=== PATIENT | female | born 1970 | race Caucasian/White ===

== ENCOUNTER 2025-08-21 07:50 | Emergency (ER) | payer BC ==
[~2025-08-21] VITALS: Ht 168.9 cm; Wt 68.0 kg
[2025-08-21 08:09] VITALS: BP 117/83; O2SAT 96
[2025-08-21] MEDS ORDERED: TIROSINT25 MCG (08:13)
[2025-08-21] MEDS ORDERED: CYTOMEL5 MCG (08:15)
[2025-08-21] MEDS ORDERED: ONDANSETRON HCL 2 MG/ML VIAL IV ONE (09:00)
[2025-08-21] MEDS ORDERED: KETOROLAC TROMETHAMINE 30 MG VIAL IU ONE (09:00)
[2025-08-21] MEDS ORDERED: 0.9 % SODIUM CHLORIDE 1,000 ML IV ONE (09:00)
[2025-08-21] MEDS ORDERED: KETOROLAC TROMETHAMINE 30 MG VIAL ONE (09:27)
[2025-08-21] MEDS ORDERED: ONDANSETRON HCL 2 MG/ML VIAL ONE (09:27)
[2025-08-21 10:15] LABS: BASO % 0.2 % (0.1-1.2); EOS # 0.10 (0.04-0.54); EOS % 0.9 % (0.7-7.0); LYMPH # 1.16 (1.18-3.74); LYMPH % 10.8 % (19.3-53.1); MEAN PLATELET VOLUME 11.70 fl (9.4-12.4); MONO # 0.51 (0.24-0.82); MONO % 4.8 % (4.7-12.5); NEUT # 8.90 (1.56-6.13); NEUT % 82.9 % (34.0-71.1); RED CELL DISTRIBUTION WIDTH 13.5 % (11.6-14.4)
[2025-08-21 10:26] LABS: URINE APPEARANCE Clear; URINE BILIRRUBIN Negative (NEGATIVE); URINE BLOOD Negative; URINE COLOR Yellow; URINE GLUCOSE Negative (NEGATIVE); URINE LEUKOCYTE Trace; URINE NITRATE Negative; URINE PROTEIN Trace (NEGATIVE); URINE UROBILINOGEN 0.2 E.U./dl
[2025-08-21 10:33] LABS: URINE BACTERIA 462.1 uL (0.0-1933); URINE EPITHELIAL CELLS 70.6 uL (0.0-38.8); URINE RBC 17.8 uL (0.0-20.8); URINE WBC 16.7 uL (0.0-23.2)
[2025-08-21 10:37] LABS: URINE CAST 0.28 uL (0.0-1.40); URINE KETONE >=160 (NEGATIVE)
[2025-08-21 10:42] LABS: ALT/SGPT 20.0 U/L (12-78); AST/SGOT 14.0 U/L (15-37); BILIRUBIN TOTAL 0.4 mg/dL (0.3-1.2); BILIRUBIN,CONJUGATED 0.17 mg/dL (0.0-0.2); BUN CREA RATIO 16.0 (7.0-25.0); CREATININE SERUM 0.55 mg/dL (0.55-1.02); GFR 114.75; GLUCOSE FASTING 81.0 mg/dL (65-100); OSMOLALITY SERUM 283.0 MOSM/KG (275-295)
[2025-08-21 10:47] LABS: INR 1.12
== END 2025-08-21 21:12 | disposition home or self-care (01) ==
LOC: ER 07:50
PROVIDERS: Emergency Medicine
DX: N88.8 Other specified noninflammatory disorders of cervix uteri (principal); R10.31 Right lower quadrant pain; E03.8 Other specified hypothyroidism; Z88.2 Allergy status to sulfonamides